=== PATIENT | female | born 1965 | race Caucasian/White ===

== ENCOUNTER 2021-04-24 14:33 | Emergency (ER) | payer SELFPAY ==
[2021-04-24 15:08] VITALS: BMI 30.2
[2021-04-24] MEDS ORDERED: IBUPROFEN 600 MG TABLET (FP) PO ONE (16:41)
[2021-04-24 17:55] VITALS: BP 102/48; PULSE 58; TEMP 97.7
[2021-04-25 16:08] LABS: SARS-CoV-2 NAA Not Detected (Not Detected)
== END 2021-04-24 17:55 | disposition home or self-care (01) ==
LOC: JER 14:33
DX: R51.9 Headache, unspecified (principal); M79.10 Myalgia, unspecified site
CPT/HCPCS: 87804; 99283-25; C9803; U0003; U0005